=== PATIENT | female | born 1965 | race Caucasian/White ===

== ENCOUNTER 2021-02-12 15:39 | Emergency (ER) | payer OTHER ==
[~2021-02-12 15:39] MED LIST: ALBUTEROL0.63 MG/3 INH; AZITHROMYCIN500 MG PO; NEB MACHINE; OMNICEF 300 MG300 MG PO
[2021-02-12] MEDS ORDERED: VENTOLIN HFA 66.7 GM INH (18:00)
== END 2021-02-12 18:15 | disposition home or self-care (01) ==
LOC: ER1 15:39
DX: J20.9 Acute bronchitis, unspecified (principal); Z20.822 Contact with and (suspected) exposure to COVID-19
CPT/HCPCS: 0240U; 71045; 94664; 99283

== ENCOUNTER 2022-05-16 07:37 | Emergency (ER) | payer OTHER ==
[~2022-05-16 07:37] MED LIST changes: +VENTOLIN HFA 66.7 GM INH
[2022-05-16] MEDS ORDERED: CEPHALEXIN500 MG PO (09:08)
[2022-05-16] MEDS ORDERED: BACTRIM DS TAB1 EACH PO (09:08)
== END 2022-05-16 09:15 | disposition home or self-care (01) ==
LOC: ER1 07:37
DX: L02.512 Cutaneous abscess of left hand (principal); L03.114 Cellulitis of left upper limb; I10 Essential (primary) hypertension; F17.210 Nicotine dependence, cigarettes, uncomplicated
CPT/HCPCS: 10060; 90471; 90715; 99283